=== PATIENT | male | born 1980 | race Caucasian/White ===

== ENCOUNTER → 2024-03-22 19:57 | Outpatient (BNV) | payer MEDICAID, SELFPAY | PROVIDERS: Admitting Provider Psychiatry & Neurology Psychiatry; Visit Provider Student in an Organized Health Care Education/Training Program | DX: Z02.2 Encounter for examination for admission to residential institution (principal) | CPT/HCPCS: 99429 ==

== ENCOUNTER → 2024-03-22 19:57 | Outpatient (BNV) | payer MEDICAID, SELFPAY | PROVIDERS: Admitting Provider Psychiatry & Neurology Psychiatry; Visit Provider Psychiatry & Neurology Psychiatry | DX: F25.9 Schizoaffective disorder, unspecified (principal); F10.90 Alcohol use, unspecified, uncomplicated | CPT/HCPCS: 90792; 99231; 99232 ==